=== PATIENT | female | born 2000 | race Caucasian/White ===

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

== ENCOUNTER → 2021-01-17 | Outpatient (CLI) | payer MEDICAID ==
--- NOTE | 2021-01-17 12:55 | Diagnostic Imaging Report ---
INDICATION: Further evaluation of anatomy structures not seen on prior exam. TECHNIQUE: Multiple real-time grayscale images were obtained over the gravid uterus. COMPARISON: 11/15/2020 FINDINGS: Single live intrauterine is in cephalic presentation. The cervix measures approximately 4.3 cm in length but is suboptimally seen on transabdominal imaging. The placenta is posteriorly positioned and normal in thickness and echogenicity. No previous noted. Limited assessment of anatomy shows normal appearance of the cerebellum, cisterna magna and cerebral ventricles. Four-chamber heart, kidneys, stomach and urinary bladder are normal in appearance. Right ventricular outflow and left ventricular outflow tracts are normal. The spine is suboptimally evaluated due to advanced gestation but is normal where seen. The HALI is normal at 13.5 cm. Biometrical measurements are as follows: Biparietal 8.28 cm, age 33 weeks 3 days. Head circumference 29.51 cm, age 32 weeks 5 days. Abdominal circumference 26.76 cm, age 31 weeks 0 days. Femur length 5.95 cm, age 31 weeks 1 days. Sonographic estimate age: 32 weeks 1 days. Sonographic estimated date of delivery: 03/13/2021. Estimated Weight: 1734 gm (+/- 253 gm). LMP percentile: 47%. heart rate: 143 beats per minute. number: 1 of 1. IMPRESSION: 1. anatomy survey is normal. Specifically, the intracranial contents not seen on prior examination are normal on today's exam. 2. Appropriate growth since prior ultrasound. Dictated by: Dictated on workstation # [id number]
== END ==
LOC: RAD FS 08:02
PROVIDERS: ATTEND Family Medicine
DX: Z34.90 Encounter for supervision of normal pregnancy, unspecified, unspecified trimester (principal); Z3A.00 Weeks of gestation of pregnancy not specified
CPT/HCPCS: 76805

== ENCOUNTER 2021-01-23 16:42 | Outpatient (CLI) | payer MEDICAID ==
[~2021-01-23] VITALS: Ht 160 cm; Wt 76.0 kg
[~2021-01-23 16:42] MED LIST changes: -LACT1CAP62 PO; -NITR-65 PO; -PREN-37 PO; -SERT25TA PO
[2021-01-23 16:53] VITALS: BP 115/55
[2021-01-23 16:57] VITALS: BP 115/55
[2021-01-23] MEDS ORDERED: SERT25TA PO (17:02)
[2021-01-23] MEDS ORDERED: PREN-37 PO (17:02)
[2021-01-23] MEDS ORDERED: LACT1CAP62 PO (17:02)
[2021-01-23] MEDS ORDERED: D5 LR IV SOLUTION 1,000 ML IV ONE (17:57)
[2021-01-23 18:06] LABS: BILIRUBIN,URINE NEGATIVE (NEGATIVE); CLARITY,URINE SL CLOUDY; COLOR,URINE YELLOW; GLUCOSE, URINE (UA) NEGATIVE (NEGATIVE); KETONES,URINE NEGATIVE (NEGATIVE); LEUKOCYTE ESTERASE ,URINE 1+ (NEGATIVE); NITRITE,URINE NEGATIVE (NEGATIVE); PROTEIN,URINE NEGATIVE (NEGATIVE)
[2021-01-23 18:16] LABS: RBC,URINE 0-2 /HPF; WBC,URINE 25-50 /HPF
[2021-01-23 18:17] LABS: BACTERIA,URINE LARGE /HPF
[2021-01-23] MEDS: D5 LR IV SOLUTION 1,000 ML IV SCH (18:17)
[2021-01-23 18:19] LABS: BASOPHILS % (AUTO) 0 % (0-10); EOSINOPHILS # (AUTO) 0.1 10^3/uL (0.0-0.3); EOSINOPHILS % (AUTO) 1 % (0-10); HEMATOCRIT 31 % (35-52); HEMOGLOBIN 10.3 g/dL (11.5-16.0); LYMPHOCYTES # (AUTO) 1.8 10^3/uL (1.0-4.0); LYMPHOCYTES % (AUTO) 23 % (12-44); MEAN CORPUSCULAR HEMOGLOBIN 29 pg (25-34); MEAN CORPUSCULAR HGB CONC 34 g/dL (32-36); MEAN CORPUSCULAR VOLUME 85 fL (80-99); MEAN PLATELET VOLUME 9.1 fL (9.0-12.2); MONOCYTES # (AUTO) 0.7 10^3/uL (0.0-1.0); MONOCYTES % (AUTO) 10 % (0-12); NEUTROPHILS % (AUTO) 66 % (42-75); PLATELET COUNT 190 10^3/uL (130-400); WHITE BLOOD COUNT 7.6 10^3/uL (4.3-11.0)
[2021-01-23] MEDS ORDERED: NITR-65 PO (19:24)
--- NOTE | 2021-01-24 08:05 | Physician Query-Final Dx ---
JHONY BAI 01/24/21 0805: Clinic Account Progress/Dx Physician Query: Please give diagnosis Please include # weeks gestation Date of Service Jan 23, 2021 at 16:42 MERVIN KANG MD 01/24/21 1606: Clinic Account Progress/Dx DIAGNOSIS: Diagnosis False labor at 33 weeks gestation JHONY BAI Jan 24, 2021 08:05 MERVIN KANG MD Jan 24, 2021 16:06
== END 2021-01-23 19:55 ==
LOC: WSo 16:42 → LDRP 16:42 → WSo 19:55
PROVIDERS: ATTEND Obstetrics & Gynecology
DX: O47.03 False labor before 37 completed weeks of gestation, third trimester (principal); O26.893 Other specified pregnancy related conditions, third trimester; R10.9 Unspecified abdominal pain; Z3A.33 33 weeks gestation of pregnancy
CPT/HCPCS: 81000; 85025; 87088; 96360; G0463; 36415; 99214

== ENCOUNTER → 2021-01-23 | Outpatient (CLI) | payer MEDICAID ==
[~2021-01-23] MED LIST changes: +LACT1CAP62 PO; +NITR-65 PO; +PREN-37 PO; +SERT25TA PO
== END ==
LOC: LABNPT 14:57
PROVIDERS: ATTEND Family Medicine
DX: N39.0 Urinary tract infection, site not specified (principal)
CPT/HCPCS: 87088

== ENCOUNTER → 2021-01-24 | Outpatient (CLI) | payer MEDICAID ==
[~2021-01-24] MED LIST changes: +LACT1CAP62 PO; +NITR-65 PO; +PREN-37 PO; +SERT25TA PO
--- NOTE | 2021-01-24 15:19 | Diagnostic Imaging Report ---
INDICATION: Abdominal pain and cramping. There is a single live fetus in a cephalic presentation. heart rate was recorded at 128 bpm. Placenta is posterior. Amniotic fluid index is 12 cm. Cervical length is 4.9 cm. No retroplacental fluid collection or evidence of abruption is identified. IMPRESSION: Unremarkable limited ultrasound. No complicating features are detected. Dictated by: Dictated on workstation # [id number]
== END ==
LOC: RAD FS 14:40
PROVIDERS: ATTEND Family Medicine
DX: R10.9 Unspecified abdominal pain (principal)
CPT/HCPCS: 76815

== ENCOUNTER → 2021-02-13 | Outpatient (CLI) | payer MEDICAID | LOC: LABNPT 14:49 | PROVIDERS: ATTEND Family Medicine | DX: Z34.91 Encounter for supervision of normal pregnancy, unspecified, first trimester (principal) | CPT/HCPCS: 87081 ==

== ENCOUNTER 2021-03-13 19:01 | Inpatient (IN) | payer MEDICAID ==
[~2021-03-13] VITALS: Ht 160 cm; Wt 89.0 kg
[2021-03-14] VITALS (42 sets, daily range): BP systolic 95–149; BP diastolic 51–88
[2021-03-14] MEDS ORDERED: TERBUTALINE INJ 1 MG/ML (BRETHINE) AMP SC PRN (01:45)
[2021-03-14] MEDS ORDERED: NS IV 1000 ML 1,000 ML IV ONE (01:45)
[2021-03-14] MEDS ORDERED: D5 LR IV SOLUTION 1,000 ML IV SCH (01:45)
[2021-03-14 02:34] LABS: BASOPHILS % (AUTO) 0 % (0-10); EOSINOPHILS # (AUTO) 0.2 10^3/uL (0.0-0.3); EOSINOPHILS % (AUTO) 3 % (0-10); HEMATOCRIT 31 % (35-52); HEMOGLOBIN 10.1 g/dL (11.5-16.0); LYMPHOCYTES # (AUTO) 2.1 10^3/uL (1.0-4.0); LYMPHOCYTES % (AUTO) 23 % (12-44); MEAN CORPUSCULAR HEMOGLOBIN 26 pg (25-34); MEAN CORPUSCULAR HGB CONC 32 g/dL (32-36); MEAN CORPUSCULAR VOLUME 80 fL (80-99); MEAN PLATELET VOLUME 9.6 fL (9.0-12.2); MONOCYTES # (AUTO) 0.8 10^3/uL (0.0-1.0); MONOCYTES % (AUTO) 9 % (0-12); NEUTROPHILS % (AUTO) 65 % (42-75); PLATELET COUNT 166 10^3/uL (130-400); WHITE BLOOD COUNT 9.3 10^3/uL (4.3-11.0)
[2021-03-14] MEDS ORDERED: CATHETER FLUSH 10 ML SYR IV SCH ×2 (06:00→14:00)
[2021-03-14] MEDS ORDERED: CLINDAMYCIN 900 MG/50 ML IVPB 50 ML IV SCH (07:04)
[2021-03-14] MEDS ORDERED: fentaNYL 2 mcg/ml BUPIVA 0.125 100 ML ONE (08:08)
--- NOTE | 2021-03-14 08:53 | History & Physical-OB ---
OB - Chief Complaint & HPI Date/Time Date of Admission: Date of Admission: Mar 13, 2021 at 7:01 pm Date seen by a Provider: Mar 14, 2021 Time Seen by a Provider: 08:10 Chief Complaint/History OB-Reason for Admission/Chief: Induction of Labor Hx : 2 Hx Para: 1 Expected Date of Delivery: Mar 21, 2021 Gestational Age in Weeks: 39 Gestational Age in Days: 0 Admission Nurse Assessment Rev: Yes History of Labs GBS pos O neg Antibody neg RI RPR NR HBsAg NR HIV NR GC neg Allergies and Home Medications Allergies Coded Allergies: amoxicillin (Verified Allergy, Mild, 03/08/19) bupropion (Verified Allergy, Mild, 03/08/19) sulfamethoxazole (Verified Allergy, Mild, 03/08/19) trimethoprim (Verified Allergy, Mild, 03/08/19) Penicillins (Verified Allergy, Unknown, 03/08/19) Patient Home Medication List Home Medication List Reviewed: Yes Lactobacillus Acidophilus (Probiotic) 1 Each Capsule, 1 EACH PO DAILY, (Reported) Entered as Reported by: DANYELLE JARRELL on 01/23/211701 Nitrofurantoin Monohyd/M-Cryst (Macrobid 100 mg Capsule) 100 Mg Capsule, 1 TAB PO BID Prescribed by: DANYELLE JARRELL on 01/23/21 192 Vit/Iron Fumarate/FA ( Tablet) 1 Each Tablet, 1 EACH PO DAILY, (Reported) Entered as Reported by: DANYELLE JARRELL on 01/23/211701 Sertraline HCl (Zoloft) 25 Mg Tablet, 10 MG PO DAILY, (Reported) Entered as Reported by: DANYELLE JARRELL on 01/23/211701 OB - History Hx of Present Care: Yes Ultrasounds: Normal mid trimester US Obstetrical Complications: None Medical Complications: None Delivery History Adverse Rxn to Tranfusion: No Patient Past Medical History previously healthy Immunizations Hepatitis A: Yes Hepatitis B: Yes Date of Influenza Vaccine: Mar 04, 2019 OB - Admission Exam Physical Exam Vitals: Vital Signs 03/14/21 03/14/21 04:33 06:00 Temp 36.8 Pulse 70 Resp 18 B/P (MAP) 101/59 (73) Pulse Ox 100 O2 Delivery Room Air HEENT: NCAT Heart: Rhythm Normal Lungs: Clear Abdomen: Gravid Extremities: Normal Reflexes: Normal Cervical Dilatation: 3cm Effacement: 75% Station: -1 Membranes: Intact Heart Rate: 130's Accelerations: Accelerations Present Short Term Variability: Present Chief Compliance Officer Variability: Average (6-25) Contractions on Admission: 6-10 Minutes Apart Intensity: Mild Labs Laboratory Tests Test 03/14/21 02:20 Range/Units White Blood Count 9.3 4.3-11.0 10^3/uL Red Blood Count 3.90 3.80-5.11 10^6/uL Hemoglobin 10.1 L 11.5-16.0 g/dL Hematocrit 31 L 35-52 % Mean Corpuscular Volume 80 80-99 fL Mean Corpuscular Hemoglobin 26 25-34 pg Mean Corpuscular Hemoglobin Concent 32 32-36 g/dL Red Cell Distribution Width 13.0 10.0-14.5 % Platelet Count 166 130-400 10^3/uL Mean Platelet Volume 9.6 9.0-12.2 fL Immature Granulocyte % (Auto) 1 % Neutrophils (%) (Auto) 65 42-75 % Lymphocytes (%) (Auto) 23 12-44 % Monocytes (%) (Auto) 9 0-12 % Eosinophils (%) (Auto) 3 0-10 % Basophils (%) (Auto) 0 0-10 % Neutrophils # (Auto) 6.0 1.8-7.8 10^3/uL Lymphocytes # (Auto) 2.1 1.0-4.0 10^3/uL Monocytes # (Auto) 0.8 0.0-1.0 10^3/uL Eosinophils # (Auto) 0.2 0.0-0.3 10^3/uL Basophils # (Auto) 0.0 0.0-0.1 10^3/uL Immature Granulocyte # (Auto) 0.1 0.0-0.1 10^3/uL OB - Assessment/Plan/Diagnosis Assessment Assessment: induction of labor Admission Dx 21 yo @ 39 weeks GBS pos Admission Status: Inpatient Order (span 2 midnights) Reason for Inpatient Admission: IOL at 39 weeks Plan Plan: Induction Induction Method: per Misoprostol Protocol (AROM perform this morning) LEANN NAVARRO DO Mar 14, 2021 8:53 am
[2021-03-14] MEDS ORDERED: NALOXONE 0.4 MG/ML 1 ML (NARCAN) VIAL IV PRN ×3 (09:00→11:30)
[2021-03-14] MEDS ORDERED: METOCLOPRAMIDE INJ 10 MG/2 ML (REGLAN) IV PRN (09:00)
[2021-03-14] MEDS ORDERED: LACTATED RINGERS 1,000 ML IV SCH (09:00)
[2021-03-14] MEDS ORDERED: EPIDURAL (fentaNYL 2 MCG/ML BUPIVA 0.125%)100 ML BAG EPI SCH (09:00)
[2021-03-14] MEDS ORDERED: ceFAZolin INJECTION 1,000 MG in WATER (STERILE) FOR INJECTION 10 ML IV SCH (09:00)
[2021-03-14] MEDS ORDERED: ONDANSETRON 4 MG/2 ML (SDV) Z0FRAN IV PRN (09:00)
[2021-03-14] MEDS ORDERED: diphenhydrAMINE 50 MG/ML INJ (BENADRYL) IV PRN (09:00)
[2021-03-14] MEDS ORDERED: fentaNYL 2 mcg/ml BUPIVA 0.125 100 ML EPI PRN (09:30)
[2021-03-14] MEDS ORDERED: LIDOCAINE/EPI 2% 1:200,00 (XYLOCAINE) 20 ML VIAL ONE (10:26)
[2021-03-14] MEDS ORDERED: OXYTOCIN PRE-MIX DRIP 500 ML IV ONE (10:27)
--- NOTE | 2021-03-14 11:26 | OB Labor & Delivery Record ---
L&D History Date of Service Date of Service: Mar 14, 2021 History Expected Date of Delivery: Mar 21, 2021 Gestational Age in Weeks: 39 Hx : 2 Hx Para: 1 Complications Events: Routine care Operative Indications (Cesarea: N/A-Vaginal Delivery Intrapartal Events: None L&D Stage1 Stage One Onset of Labor - Date: Mar 14, 2021 Monitors and Tracing Monitor Mode: External Heart Rate: 130 Station: -4 Shelter Variability: Average (6-10) Short Term Variability: Present Presentation: Vertex Vital Signs VS - Last 72 Hours, by Label 03/14/21 03/14/21 03/14/21 03/14/21 02:00 03:00 04:00 04:33 Temp 36.8 36.8 Pulse 87 88 68 87 Resp 18 18 18 18 B/P (MAP) 124/81 (95) 122/88 (99) 102/59 (73) Pulse Ox 100 100 O2 Delivery Room Air Room Air Room Air Room Air 03/14/21 03/14/21 03/14/21 03/14/21 05:00 06:00 07:15 07:30 Pulse 65 70 75 Resp 18 18 18 B/P (MAP) 100/57 (71) 101/59 (73) 115/69 (84) O2 Delivery Room Air Room Air Room Air Room Air 03/14/21 03/14/21 03/14/21 03/14/21 08:00 08:15 08:20 08:25 Pulse 116 83 Resp 18 18 B/P (MAP) 138/58 (84) 120/76 (91) Pulse Ox 100 100 O2 Delivery Room Air Room Air Room Air Room Air 03/14/21 03/14/21 08:30 08:45 Pulse 84 86 Resp 18 18 B/P (MAP) 133/84 (100) 124/72 (89) Pulse Ox 100 100 O2 Delivery Room Air Room Air Rupture of Membranes Spontaneous Ruture of Membrane: No Amniotic Membrane Rupture Time: 0759 Amniotic Membrane Fluid Desc.: Clear Vaginal Bleeding Description: Normal Show Progress/Notes Patient received single dose of misoprostol last night, and AROM performed this morning. Shortly after she received an epidural and rapidly progressd to complete and +2 station with out further augmentation. L&D Stage2 Stage Two Stage II Date: Mar 14, 2021 Monitors and Tracing Monitor Mode: External Heart Rate: 130 Monitor Accelerations: Uniform Monitor Decelerations: None Cloth Beamer Variability: Average (6-10) Short Term Variability: Present Position: Right Occiput Anterior Presentation: Vertex Cord Descript/Complications Cord Vessel Description: 3 Vessels Delivery Type Delivery Method: Spontaneous Vaginal Anterior Shoulder: Left Episiotomy/Perineal Laceration Laceraction(s)/Extensions: No Condition of Delivery 1 minute Comment: 9 5 minute Comment: 9 Notes Live female weight pending. Condition of Infant Condition of Infant: Living Exam: No Observed Abnormalities Resuscitation Resuscitation: N/A - Spontaneous Resp L&D Stage3 Stage Three Stage III Date: Mar 14, 2021 Pictocin Pitocin Administration Comment: 30 mu wide open after delivery of placenta Placenta Delivery Placenta Delivery: Spontaneous Delivery Summary Summary Estimated blood loss (mL): 300 Attending at delivery: Leann Navarro DO Condition of Delivery Examined: Cervix Examined, Uterus Explored Post Hemorrhage: No Condition of Mother stable Condition of (s) stable LEANN NAVARRO DO Mar 14, 2021 11:26
[2021-03-14] MEDS ORDERED: TETANUS,DIPTH,PERTUSS P/F (BOOSTRIX) 0.5 ML VIAL IM ONE (11:30)
[2021-03-14] MEDS ORDERED: WITCH HAZEL(TUCKS) 40 EA JAR TOP PRN (11:30)
[2021-03-14] MEDS ORDERED: OXYTOCIN PRE-MIX DRIP 500 ML IV SCH (11:30)
[2021-03-14] MEDS ORDERED: MEASLES,MUMPS,RUBELLA 1 EA INJ SQ ONE (11:30)
[2021-03-14] MEDS ORDERED: BENZOCAINE/MENTHOL (DERMOPLAST) 56 ML CAN TP PRN (11:30)
[2021-03-14] MEDS ORDERED: diphenhydrAMINE 2% 30 GM CR (ALLERGY CREAM) TOP PRN (12:30)
[2021-03-14] MEDS: IBUPROFEN 600 MG (MOTRIN) TAB PO SCH ×2 (13:01→19:36)
[2021-03-14] MEDS: DOCUSATE SODIUM 100 MG (COLACE) CAP PO SCH (19:36)
[2021-03-14] MEDS: HYDROcodone/APAP 5 MG/325 MG (LORTAB) TAB PO PRN (23:03)
[2021-03-15 01:37] VITALS: BP 127/78
[2021-03-15] MEDS: IBUPROFEN 600 MG (MOTRIN) TAB PO SCH ×4 (02:09→20:57)
[2021-03-15 05:50] VITALS: BP 112/62
[2021-03-15 06:42] LABS: BASOPHILS # (AUTO) 0.1 10^3/uL (0.0-0.1); BASOPHILS % (AUTO) 0 % (0-10); EOSINOPHILS # (AUTO) 0.2 10^3/uL (0.0-0.3); EOSINOPHILS % (AUTO) 2 % (0-10); HEMATOCRIT 30 % (35-52); HEMOGLOBIN 9.6 g/dL (11.5-16.0); LYMPHOCYTES # (AUTO) 2.4 10^3/uL (1.0-4.0); LYMPHOCYTES % (AUTO) 21 % (12-44); MEAN CORPUSCULAR HEMOGLOBIN 26 pg (25-34); MEAN CORPUSCULAR HGB CONC 33 g/dL (32-36); MEAN CORPUSCULAR VOLUME 81 fL (80-99); MEAN PLATELET VOLUME 9.5 fL (9.0-12.2); MONOCYTES # (AUTO) 0.9 10^3/uL (0.0-1.0); MONOCYTES % (AUTO) 7 % (0-12); NEUTROPHILS # (AUTO) 8.1 10^3/uL (1.8-7.8); NEUTROPHILS % (AUTO) 69 % (42-75); PLATELET COUNT 190 10^3/uL (130-400); WHITE BLOOD COUNT 11.7 10^3/uL (4.3-11.0)
[2021-03-15] MEDS ORDERED: DOCU100C37 PO (08:58)
[2021-03-15] MEDS ORDERED: ACHD5005 PO (08:58)
[2021-03-15] MEDS ORDERED: IBUP-844 PO (08:58)
--- NOTE | 2021-03-15 09:00 | Discharge Inst-Women's Service ---
Discharge Inst-Women's Serv Depart Medication/Instructions New, Converted or Re-Newed RX: Call to Patients Pharmacy Consults/Follow Up Additional Follow Up: Yes Orders/Referrals 6wk PP appt w/Dr. Stone Activity Activity: Activity as Tolerated Driving Instructions: No Driving for 1 Week NO SMOKING: NO SMOKING Nothing Inside Vagina: No Douching, No [place], No Tampons Diet Discharge Diet: No Restrictions Symptoms to Report to : Bleeding Excessive, Fever Over 101 Degrees F, Vaginal Bleeding Increase For Any Problems or Questions: Contact Your Physician RENARD DELVALLE APRN Mar 15, 2021 09:00
--- NOTE | 2021-03-15 09:07 | Postpartum Progress Note ---
Note Note Day # 1 Subjective: Patient is without complaints. Ambulating, voiding. Tolerating a regular diet without nausea or vomiting. Normal lochia. Pain is well controlled with oral pain medications. Breast feeding. Objective: Physical Exam: General - Alert and oriented, no apparent distress Abdomen - Soft, appropriately tender to palpation, non-distended, fundus firm at umbilicus Extremities - no edema, negative Kavya's bilaterally Assessment: Post- day # 1, status post vaginal delivery. Recovering well, hemodynamically stable Acute blood loss anemia Plan: Routine care. Encourage breast feeding. Encourage ambulation. Ferrous sulfate supplementation. Plan for discharge this afternoon or tomorrow morning (pending baby's DC) Vitals - Labs Vital Signs - I&O Vital Signs Date Time Temp Pulse Resp B/P (MAP) Pulse Ox O2 Delivery O2 Flow Rate FiO2 03/15/21 05:50 36.6 69 18 112/62 (79) 96 Room Air 03/15/21 01:37 36.3 83 18 127/78 (94) 98 Room Air 03/14/21 19:37 36.0 76 18 118/71 (87) 96 Room Air 03/14/21 16:30 36.2 74 18 122/82 (95) 99 Room Air 03/14/21 12:59 68 18 112/71 (85) Room Air 03/14/21 12:29 72 18 117/75 (89) Room Air 03/14/21 11:44 36.4 75 18 114/65 (81) Room Air 03/14/21 11:29 73 18 112/58 (76) Room Air 03/14/21 11:15 80 18 120/60 (80) Room Air 03/14/21 10:57 94 18 111/71 (84) Room Air 03/14/21 10:52 36.8 89 18 109/55 (73) Room Air 03/14/21 10:46 Room Air 03/14/21 10:40 78 18 128/70 (89) Room Air 03/14/21 10:35 86 18 149/82 (104) Room Air 03/14/21 10:30 86 18 149/82 (104) Room Air 03/14/21 10:15 35.9 96 18 115/63 (80) 99 Room Air 03/14/21 10:08 64 18 99/58 (72) Room Air 03/14/21 10:00 67 18 99/55 (70) 99 Room Air 03/14/21 09:45 71 18 95/52 (66) 99 Room Air 03/14/21 09:38 75 18 96/54 (68) 99 Room Air 03/14/21 09:32 66 18 98/53 (68) 99 Room Air 03/14/21 09:30 69 18 101/59 (73) 98 Room Air 03/14/21 09:24 68 18 98/54 (69) 99 Room Air 03/14/21 09:18 69 18 96/51 (66) 99 Room Air 03/14/21 09:15 74 18 102/55 (71) 98 Room Air 03/14/21 09:10 74 18 101/57 (72) 99 Room Air I & O 03/15/21 07:00 Intake Total 2910 ml Balance 2910 ml Labs Laboratory Tests 03/15/21 06:31: White Blood Count 11.7H, Red Blood Count 3.65L, Hemoglobin 9.6L, Hematocrit 30L, Mean Corpuscular Volume 81, Mean Corpuscular Hemoglobin 26, Mean Corpuscular Hemoglobin Concent 33, Red Cell Distribution Width 13.1, Platelet Count 190, Mean Platelet Volume 9.5, Immature Granulocyte % (Auto) 1, Neutrophils (%) (A uto) 69, Lymphocytes (%) (Auto) 21, Monocytes (%) (Auto) 7, Eosinophils (%) (Auto) 2, Basophils (%) (Auto) 0, Neutrophils # (Auto) 8.1H, Lymphocytes # (Auto) 2.4, Monocytes # (Auto) 0.9, Eosinophils # (Auto) 0.2, Basophils # (Auto) 0.1, Immature Granulocyte # (Auto) 0.1 RENARD DELVALLE APRN Mar 15, 2021 09:07
[2021-03-15] MEDS: PRENATAL VITAMIN 1 EA TAB PO SCH (09:58)
[2021-03-15] MEDS: DOCUSATE SODIUM 100 MG (COLACE) CAP PO SCH ×2 (09:59→20:03)
[2021-03-15] MEDS: FERROUS SULF 325 MG (IRON) TAB PO SCH (09:59)
[2021-03-15 10:19] VITALS: BP 123/72
[2021-03-15] MEDS ORDERED: ACETAMINOPHEN 500 MG TAB (TYLENOL) PO PRN (15:15)
[2021-03-15] MEDS ORDERED: ACETAMINOPHEN 500 MG TAB (TYLENOL) ONE (15:16)
[2021-03-15 15:24] VITALS: BP 118/78
[2021-03-15 20:04] VITALS: BP 112/70
[2021-03-15] MEDS: HYDROcodone/APAP 5 MG/325 MG (LORTAB) TAB PO PRN (20:58)
[2021-03-15] MEDS ORDERED: SERTRALINE 50 MG (ZOLOFT) TABLET PO SCH (21:00)
[2021-03-16 03:47] VITALS: BP 129/76
[2021-03-16] MEDS: IBUPROFEN 600 MG (MOTRIN) TAB PO SCH ×2 (03:48→08:02)
[2021-03-16] MEDS: FERROUS SULF 325 MG (IRON) TAB PO SCH (08:02)
[2021-03-16] MEDS: PRENATAL VITAMIN 1 EA TAB PO SCH (08:02)
[2021-03-16] MEDS: DOCUSATE SODIUM 100 MG (COLACE) CAP PO SCH (08:02)
[2021-03-16 08:03] VITALS: BP 139/82
--- NOTE | 2021-03-18 14:19 | Anesthesia-Regional Post-Op ---
Regional Patient Condition Mental Status: Alert, Oriented x3 Circulation: Same as Pre-Op Headache: Absent Sensation: Full Recovery Motor Block: Absent Post Op Complications Complications None Follow Up Care/Instructions Patient Instructions None needed. Anesthesia/Patient Condition I just spoke with the patient via telephone and she is doing well, no complaints, stable vital signs, no apparent adverse anesthesia problems. She was already discharged to home during postop rounds on 03-16-21 so a telephone post- op visit was done by me instead. She will call with questions or concerns or if anything changes. EUSEBIO CALVILLO DO Mar 18, 2021 14:19
== END 2021-03-16 15:00 | disposition home or self-care (01) | DRG 806 ==
LOC: LDRP 19:01
PROVIDERS: ADMIT Obstetrics & Gynecology; ATTEND Obstetrics & Gynecology
PROC: 10E0XZZ Delivery of Products of Conception, External Approach (ICD-10-PCS; principal; 2021-03-13)
PROC: 3E0DXGC Introduction of Other Therapeutic Substance into Mouth and Pharynx, External Approach (ICD-10-PCS; 2021-03-13)
DX: O99.824 Streptococcus B carrier state complicating childbirth (principal); D62 Acute posthemorrhagic anemia; Z37.0 Single live birth; O90.81 Anemia of the puerperium; Z3A.39 39 weeks gestation of pregnancy; Z88.0 Allergy status to penicillin; Z88.1 Allergy status to other antibiotic agents; Z88.2 Allergy status to sulfonamides; Z88.8 Allergy status to other drugs, medicaments and biological substances
CPT/HCPCS: 36415; 83033; 85025; 86850; 86900; 86901

== ENCOUNTER → 2021-09-10 | Outpatient (CLI) | payer MEDICAID ==
[~2021-09-10] MED LIST changes: +ACHD5005 PO; +DOCU100C37 PO
== END ==
LOC: LAB FS 15:08
PROVIDERS: ATTEND Registered Nurse Emergency
DX: Z20.822 Contact with and (suspected) exposure to COVID-19 (principal)
CPT/HCPCS: 87636

== ENCOUNTER → 2022-02-28 | Outpatient (CLI) | payer BC | LOC: LAB FS 11:40 | PROVIDERS: ATTEND Family Medicine | DX: N92.5 Other specified irregular menstruation (principal) | CPT/HCPCS: 36415; 84702 ==

== ENCOUNTER → 2022-03-19 | Outpatient (CLI) | payer BC | LOC: LABNPT 12:21 | PROVIDERS: ATTEND Family Medicine | DX: Z11.3 Encounter for screening for infections with a predominantly sexual mode of transmission (principal) | CPT/HCPCS: 87210 ==

== ENCOUNTER → 2022-03-19 | Outpatient (CLI) | payer BC | LOC: LABNPT 14:38 | PROVIDERS: ATTEND Family Medicine | DX: Z11.3 Encounter for screening for infections with a predominantly sexual mode of transmission (principal) | CPT/HCPCS: 87491; 87591 ==

== ENCOUNTER → 2023-01-15 | Outpatient (CLI) | payer BC, MEDICAID ==
[2023-01-15 16:36] LABS: BILIRUBIN,URINE NEGATIVE (NEGATIVE); CLARITY,URINE SL CLOUDY; COLOR,URINE YELLOW; GLUCOSE, URINE (UA) NEGATIVE (NEGATIVE); KETONES,URINE NEGATIVE (NEGATIVE); LEUKOCYTE ESTERASE ,URINE 1+ (NEGATIVE); NITRITE,URINE NEGATIVE (NEGATIVE); PH,URINE 6.5 (5-9); PROTEIN,URINE NEGATIVE (NEGATIVE)
[2023-01-15 16:47] LABS: BACTERIA,URINE FEW /HPF; RBC,URINE 0-2 /HPF
== END ==
LOC: LAB FS 16:01
PROVIDERS: ATTEND Family Medicine
DX: N89.9 Noninflammatory disorder of vagina, unspecified (principal); N39.0 Urinary tract infection, site not specified
CPT/HCPCS: 81000; 87088; 87210; 87491